=== PATIENT | female | born 1960 | race Two or more races ===

== ENCOUNTER 2025-05-06 20:01 | Emergency (ER) | payer MEDICAID, SELFPAY ==
[2025-05-06 20:04] VITALS: BMI 23.4
[2025-05-06 20:28] VITALS: BP 132/88; PULSE 94; RESP 18; TEMP 37.1; O2SAT 98
--- NOTE | 2025-05-06 20:31 | XR_ITS ---
Examination: CT brain head without contrast. 2-D sagittal coronal reconstructions Date and time of exam:May 06, 2025 2109 hours INDICATIONS: Ground-level fall today with injury to the head, head pain CTDI: vol (mGy):43 DLP: (mGycm):801 Technique: Multiple CT axial sections of the brain have been obtained, 5 mm slice thickness. Contrast has not been administered. 2-D sagittal, coronal reconstructions have been obtained Low dose protocols were performed. One or more of the following dose reduction techniques were used; automated exposure control, adjustment of the mA and/or KV according to patient size, use of iterative reconstruction technique. Findings: No significant ventricular enlargement. Intra-axial or extra-axial hemorrhage density is not seen. No mass effect or midline shift Basal cisterns are not remarkable. Fourth ventricle is midline. Cranial vault intact. Impression: Negative for acute hemorrhage, mass effect or midline shift
--- NOTE | 2025-05-06 20:31 | XR_ITS ---
Examination: CT maxillofacial, without intravenous contrast. 2-D sagittal reconstructions. 3-D reconstructions. Date and time of exam:May 06, 2000 8025 2106 hours INDICATIONS: Patient fell today with injury to the face facial pain CTDI: vol (mGy):16. DLP: (mGycm): 343. Technique: Multiple axial images of maxillofacial region, 3.0 mm slice thickness. 2-D sagittal and coronal reconstructions. 3-D reconstructions. Low dose protocols were performed. One or more of the following dose reduction techniques were used; automated exposure control, adjustment of the mA and/or KV according to patient size, use of iterative reconstruction technique. Findings: Frontal: Intact. Orbital rims intact. No nasal bone fracture. No depression zygomatic arches. Pterygoid plates maxilla and the mandible is intact IMPRESSION: No acute facial fracture.
--- NOTE | 2025-05-06 20:32 | EDNOTE_ITS ---
ED Fall Injury RME/HPI General Chief Complaint: Fall Stated Complaint: TRIP AND FALL MOUTH AND FOREHEAD LACERATIONS Time Seen by Provider: 05/06/25 20:26 Source: patient, RN notes reviewed and old records reviewed Arrival date/time: 05/06/25 20:01 Mode of arrival: ambulatory Limitations: no limitations RME / HPI RME / HPI Narrative: 64yof presents to ED for evaluation s/p head injury today. Patient reports mechanical trip and fall over a curb hitting her head and face against the concrete. No LOC reported. Patient denies nausea/vomiting, neck pain, vision c hanges or dizziness. Ibuprofen taken district captain. Tetanus vacc up-to-date. Related Data Home Medications ?Medication ?Instructions ?Recorded ?Confirmed levothyroxine 75 mcg tablet 75 mcg PO QDAY ##0 3 08/02/20 lisinopril 20 mg tablet 20 mg PO QDAY 07/22/1808/02 simvastatin 10 mg tablet 20 mg PO QHS 07/22/18 empagliflozin 25 mg tablet 25 mg PO QDAY 08/02/2007/23 (Jardiance) insulin glargine 100 unit/mL (3 25 unit subcut QPM 08/1108/02/20 mL) subcutaneous pen (Lantus Solostar U-100 Insulin) metformin 500 mg tablet 500 mg PO BID 08/02/2008/02 pantoprazole 40 mg tablet,delayed 40 mg PO BID 0 08/02/20 release sitagliptin phosphate 100 mg 100 mg PO QDAY 08/02/20 1 10/02/19 tablet (Januvia) Previous Rx's ?Medication ?Instructions ?Recorded acetaminophen 650 mg 650 mg PO Q8H PRN pain #30 t abs 05/06/25 tablet,extended release (Tylenol 8 Hour) ibuprofen 600 mg tablet 600 mg PO Q8H PRN pain #30 t abs 05/06/25 Allergies Allergy/AdvReac Type Severity Reaction Status Date / Time No Known Allergies Allergy Verified 05/06/25 20:13 Review of Systems Review of Systems Systems Reviewed: All systems reviewed, normal except as documented Constitutional Constitutional: Reports headache(s) Eyes Eyes: Denies blurry vision ENT Ears, Nose, Mouth, and Throat: Denies dizziness, Reports headache(s) and Denies neck pain Cardiovascular Cardiovascular: Denies syncope Gastrointestinal Gastrointestinal: Denies nausea and Denies vomiting Musculoskeletal Musculoskeletal: Denies arthralgias, Denies back pain and Denies neck pain Integumentary/Breasts Comments: Reports facial wounds Neurologic Neurologic: Denies dizziness, Reports headache(s) and Denies syncope Past Medical History Past Medical History ENDOCRINE: Positive Diabetes Mellitus Type 2 and Hypothyroidism OTHER HISTORY: Positive Cancer (thyroid) Surgical History OTHER SURGICAL HX: thyroidectomy Social History SMOKING STATUS: Never smoker SUBSTANCE USE: does not use ALCOHOL: Never ED Exam General Limitations: Present no limitations General appearance: Present alert and in no apparent distress Head Head exam: Present normocephalic and other (3cm superficial linear abrasion to right eyebrow) Eye Eye exam: Present PERRL, EOMI and other (Right infraorbital contusion, mild swelling/tenderness) ENT ENT exam: Present mucous membranes moist and other (Dentition intact. Superficial abrasion/laceration to upper lip mucosa) Neck Neck exam: Present normal inspection and full ROM; Absent tenderness Chest Chest inspection: Present normal inspection and symmetric chest wall rise Respiratory Respiratory exam: Present normal lung sounds bilaterally; Absent respiratory distress Cardiovascular Cardiovascular exam: Present regular rate and normal rhythm Extremities Exam Extremities exam: Present normal inspection and full ROM Back Exam Back exam: Absent paraspinal tenderness or vertebral tenderness Neurological Exam Neurological exam: Present alert and oriented X3 Psychiatric Psychiatric exam: Present normal affect and normal mood Skin Skin exam: Present other (Superficial skin avulsion with abrasion to philtrum. Small superficial abrasions to right hand, right knee) Course Quality Measures none Orders Category Date Time Status CT facial bones wo con Stat Exams 05/06/25 20:[address] head/brain wo con Stat Exams 05/06/25 20:31 Completed HYDROcodone*/APAP 7.5/325 [[place] 7.5/325] Med 05/06/25 20:32 Discontinued 1 tab PO X1 ONE Vital Signs Vital signs: Vital Signs Temperature 98.8 F 05/06/25 20:28 Pulse Rate 94 05/06/25 20:28 Respiratory Rate 18 05/06/25 20:28 Blood Pressure 132/88 H 05/06/25 20:28 Pulse Oximetry (%) 98 05/06/25 20:28 Oxygen Delivery Method Room Air 05/06/25 20:28 Fall MDM Narrative MDM Narrative:: 64yof presents to ED for evaluation s/p head injury today. Patient reports mechanical trip and fall over a curb hitting her head and face against the concrete. No LOC reported. Patient denies nausea/vomiting, neck pain, vision changes or dizziness. Ibuprofen taken district captain. Tetanus vacc up-to-date. Imaging negative. Facial and extremity wounds are superficial. Patient is neurologically intact. Encouraged rest, Motrin/Tylenol, ice application prn. Stable for discharge, RTED precautions given. Patient data External records reviewed:: [facility] previous records (08/02/2020 ED visit for heart palpitations) Clinical information provided by:: patient Social determinants that could affect healthcare access:: none Patient has the following chronic illnesses:: DM, hypothyroid How is presenting disease/condition affected by chronic disease/condition?: uneffected by Evaluation data The following diagnostics were reviewed and interpreted by me:: radiology exam(s) Lab and/or radiology exams considered but not ordered:: None Interpretation Summary: CT head: No ICH per my read Medications / Prescriptions Medications or Prescriptions considered but not ordered:: No antibiotics recommended at this time Medication administrations:: Medication Administration History Discontinued Medications Hydrocodone Bitart/Acetaminophen (Hydrocodone/Apap 7.5/325 Tablet) 1 tab PO X1 ONE Stop: 05/06/25 20:33 Last Admin: 05/06/25 20:40 Dose: 1 tab Documented By: OA Above medication administered in ED Consultations Consultation(s) initiated? (list below): No Diagnosis Fall Differential Diagnosis: other (Head injury, orbital fracture, contusion, hematoma, MSK pain, avulsion, laceration, abrasion) Most likely diagnosis given after review of the tests above:: Facial abrasion, orbital contusion Admission Indicated Admission indicated?: not indicated Admission Request Was there a request for admission?: No Disposition Plan Disposition Plan: Discharge Discharge Attestation Discharge Attestation: The patient and all family members were given an opportunity to ask questions and understood the discharge instructions. Discharge instructions specifically effects, indications for sooner follow up or return to the emergency department, and the expected course of current diagnosis. Patient condition: Stable Discharge Plan Plan Patient Disposition: HOME (Self Care) Patient condition on transfer: Stable Prescriptions/Referrals Prescriptions/Med Rec: New ibuprofen 600 mg tablet 600 mg PO Q8H PRN (Reason: pain) Qty: 30 0RF acetaminophen [Tylenol 8 Hour] 650 mg tablet extended release 650 mg PO Q8H PRN (Reason: pain) Qty: 30 0RF No Action lisinopril 20 mg tablet 20 mg PO QDAY simvastatin 10 mg tablet 20 mg PO QHS levothyroxine 75 mcg Tablet 75 mcg PO QDAY Qty: 0 metformin 500 mg Tablet 500 mg PO BID pantoprazole 40 mg Tablet,Delayed Release (Dr/Ec) 40 mg PO BID Januvia 100 mg Tablet 100 mg PO QDAY Lantus Solostar U-100 Insulin 100 unit/mL (3 mL) Insulin Pen 25 unit SUBCUT QPM Jardiance 25 mg Tablet 25 mg PO QDAY Referrals: Leroy Gao, FRANCISCAC [Primary Care Provider] - In 1 week Problem List Clinical Impression: Facial contusion, Fall, Abrasion of right eyebrow Patient/Caregiver Discharge Instructions Education Materials: ED Facial Contusion Print Language: Ghanaian Stand Alone Forms: Soled[facility] Award Info., Patient Portal Info Letter PA/WORKERS COMPENSATION CLAIMS SPECIALIST Supervising Physician PA/WORKERS COMPENSATION CLAIMS SPECIALIST Supervising Physician: Chencho
[2025-05-06] MEDS: HYDROcodone/APAP 7.5/325 TABLET 1 TAB PO (20:40)
== END 2025-05-06 23:59 | disposition home or self-care (01) ==
PROVIDERS: Emergency Provider Emergency Medicine; PCP Physician Assistant
DX: S00.83XA Contusion of other part of head, initial encounter (principal); S00.211A Abrasion of right eyelid and periocular area, initial encounter; E11.9 Type 2 diabetes mellitus without complications; E89.0 Postprocedural hypothyroidism; Z79.84 Long term (current) use of oral hypoglycemic drugs; Z79.890 Hormone replacement therapy; Z79.899 Other long term (current) drug therapy; Z79.4 Long term (current) use of insulin; W01.0XXA Fall on same level from slipping, tripping and stumbling without subsequent striking against object, initial encounter
CPT/HCPCS: 70450; 70486; 99283; A9270

== ENCOUNTER 2025-05-28 11:00 | Emergency (ER) | payer MEDICAID, SELFPAY ==
[2025-05-28 11:01] VITALS: BMI 21.4
[2025-05-28 11:34] VITALS: BP 107/71; PULSE 92; RESP 18; TEMP 36.7; O2SAT 97
--- NOTE | 2025-05-28 11:44 | PD.EDRME ---
Rapid Medical Screening Exam E Arrival date/time: 05/28/25 11:00 This is a 64-year-old female that comes in with complaints of urinary symptoms. Patient complains of back pain chills and nausea. patient states she has been sick for over 2 weeks. Patient was initially placed on Macrobid which did not seem to help patient's symptoms. Patient was then put on Cipro and she was called back to her doctor's office because the Cipro was a resistant antibiotic and so they had to switch it to Keflex. Patient states she started taking Keflex yesterday. Patient has a history of diabetes. I have greeted and performed a focused initial assessment of this patient. Initial appropriate labs ordered at this time. A comprehensive ED assessment and evaluation of the patient and analysis of all test and completion of medical decision making process will be conducted by additional ED provider. Chief Complaint: Urogenital-Female Time Seen by Provider: 05/28/25 11:31 Vital signs: Vital Signs Temperature 98.1 F 05/28/25 11:34 Pulse Rate 92 05/28/25 11:34 Respiratory Rate 18 05/28/25 11:34 Blood Pressure 107/71 05/28/25 11:34 Pulse Oximetry (%) 97 05/28/25 11:34 Oxygen Delivery Method Room Air 05/28/25 11:34
[2025-05-28 12:05] LABS: Collection Type, Urine Voided
[2025-05-28 12:11] LABS: Lactate (Lactic Acid) 1.3 mMol/L (0.4-2.0)
[2025-05-28 12:19] LABS: Basophils # (Auto) 0.1 Thou/mm3 (0.0-0.2); Basophils % (Auto) 1 % (0-2.5); Eosinophils # (Auto) 0.1 Thou/mm3 (0.0-0.5); Eosinophils % (Auto) 1 % (0-10); Hematocrit 33.1 % (36.0-46.0); Hemoglobin 10.7 g/dL (12.0-16.0); Immature Granulocytes Auto 0.02 Thou/mm3 (0.00-0.00); Lymphocytes # (Auto) 1.7 Thou/mm3 (1.0-4.8); Lymphocytes % (Auto) 18 % (10-50); Mean Corpuscular HGB Conc 32.3 g/dl (31.0-37.0); Mean Corpuscular Hemoglobin 27.4 pg (25.0-35.0); Mean Corpuscular Volume 85 fL (80-100); Monocytes # (Auto) 0.5 Thou/mm3 (0.0-0.8); Monocytes % (Auto) 5 % (0-12); Neutrophils # (Auto) 7.1 Thou/mm3 (1.8-7.7); Neutrophils % (Auto) 75 % (37-80); Nucleated Red Blood Cell # 0.00 Thou/mm3 (0.00-0.00); Nucleated Red Blood Cell % 0 /100 WBC (0); Platelet Count 357 Thou/mm3 (140-440); RDW Standard Deviation 44.1 fL (36.4-46.3); Red Blood Count 3.90 Miln/mm3 (4.00-5.20); White Blood Count 9.5 Thou/mm3 (3.6-11.0)
[2025-05-28 12:42] LABS: Bilirubin,Urine Negative (Negative); Blood,Urine Negative (Negative); Color,Urine Lt-Yellow (Lt Yel-Yel); Glucose, Urine 4+ (Negative); Ketones,Urine 1+ (Negative); Leukocyte Esterase,Urine Positive (Negative); Nitrite,Urine Negative (Negative); PH,Urine 5.5 (5.0-7.0); Protein,Urine Trace (Neg - Trace); RBC,Urine 5 /hpf (0-3); Specific Gravity,Urine 1.021 (1.001-1.035); Squamous Epithelial Cell,Urine < 1 /hpf (0-5); Urobilinogen,Urine Negative mg/dL (0.0-1.0); WBC,Urine 141 /hpf (0-5)
[2025-05-28 12:46] LABS: Clarity,Urine Hazy (Clear/Hazy); Culture Indicated,Urine Yes
[2025-05-28 13:09] LABS: Alanine Aminotransferase 14 U/L (10-49); Albumin, Serum 4.7 gm/dL (3.4-4.8); Albumin/Globulin Ratio 1.7 (1.2-2.2); Alkaline Phosphatase 96 U/L (46-116); Anion Gap 14 (7-16); Aspartate Amino Transferase 20 U/L (0-34); BUN/Creatinine Ratio 16 Ratio (12-20); Bilirubin,Total 0.4 mg/dL (0.3-1.2); Blood Urea Nitrogen 16 mg/dL (9-23); Calcium 10.4 mg/dL (8.3-10.6); Calcium (Corrected) 10.4 mg/dL (8.5-10.1); Carbon Dioxide 22.1 mMol/L (20.0-31.0); Chloride 102 mMol/L (98-107); Creatinine (Component) 1.0 mg/dL (0.6-1.3); Estimated Creatinine Clearance 41.4 mL/min (>60); Globulin 2.8 gm/dL (2.3-3.5); Glucose 117 mg/dL (74-106); Osmolality,Calculated 277 (275-295); Potassium 4.4 mMol/L (3.4-5.1); Sodium 138 mMol/L (136-145); Total Protein 7.5 gm/dL (5.7-8.2); eGFR > 60 See Note
[2025-05-28 13:12] LABS: Procalcitonin 0.08 ng/ml (0.0-0.49)
--- NOTE | 2025-05-28 13:26 | PD.EDFMALE ---
ED Female Urogenital RME/HPI General Chief complaint: Urogenital-Female Stated complaint: UTI FOR 3 WEEKS, NOW WITH BACK PAIN/N/V Time Seen by Provider: 05/28/25 11:31 Arrival date/time: 05/28/25 11:00 RME / HPI RME / HPI Narrative: 64-year-old female that comes in with complaints of urinary symptoms. Patient complains of back pain chills and nausea. patient states she has been sick for over 2 weeks. Patient was initially placed on Macrobid which did not seem to help patient's symptoms. Patient was then put on Cipro and she was called back to her doctor's office because the Cipro was a resistant antibiotic and so they had to switch it to Keflex. Patient states she started taking Keflex yesterday. Patient woke up this morning with nausea and 1 episode of vomiting. No fever noted. Patient has a history of diabetes. Related Data Home Medications ?Medication ?Instructions ?Recorded ?Confirmed levothyroxine 75 mcg tablet 75 mcg PO QDAY ##0 02/12/13 08/02/20 lisinopril 20 mg tablet 20 mg PO QDAY 07/22/18 08/02/20 simvastatin 10 mg tablet 20 mg PO QHS 07/22/18 08/02/20 empagliflozin 25 mg tablet 25 mg PO QDAY 08/02/20 08/02/20 (Jardiance) insulin glargine 100 unit/mL (3 25 unit subcut QPM 08/02/20 08/02/20 mL) subcutaneous pen (Lantus Solostar U-100 Insulin) metformin 500 mg tablet 500 mg PO BID 08/02/20 08/02/20 pantoprazole 40 mg tablet,delayed 40 mg PO BID 08/02/20 08/02/20 release sitagliptin phosphate 100 mg 100 mg PO QDAY 08/02/20 08/02/20 tablet (Januvia) Previous Rx's ?Medication ?Instructions ?Recorded acetaminophen 650 mg 650 mg PO Q8H PRN pain #30 tabs 05/06/25 tablet,extended release (Tylenol 8 Hour) ibuprofen 600 mg tablet 600 mg PO Q8H PRN pain #30 tabs 05/06/25 cefdinir 300 mg capsule 300 mg PO BID #14 caps 05/28/25 Allergies Allergy/AdvReac Type Severity Reaction Status Date / Time No Known Allergies Allergy Verified 05/28/25 11:02 Review of Systems Review of Systems Narrative Review of Systems: Review of system reviewed and within normal limits except mentioned in HPI ED Exam Narrative Physical exam: VITAL SIGNS: Reviewed. GENERAL APPEARANCE: Alert and interactive, follows commands, no acute distress, HEAD AND FACE: Non-traumatic. ENT: PERRL, pink conjunctivitis, eyelid no trauma, Mucous membrane moist. NECK: Supple, nontender, no nuchal rigidity. CHEST: No tenderness, no crepitus, no paradoxical movement, no retractions. LUNGS: Clear, well ventilated, symmetric, no rales, no wheezing, no ronchi, no stridor, good breath sounds bilaterally. HEART: Regular rate, regular rhythm, no murmur, no gallops. ABDOMEN: Soft, positive bowel sounds, nondistended, no guarding, nontender, no rebound, no masses, RECTAL: Deferred. GENITAL: Deferred. NEUROLOGICAL: Gross motor function intact sensory function intact, Appropriate for age. MUSCULOSKELETAL: low back tenderness, full range of motion. EXTREMITIES: Nontender, full range of motion. SKIN: Color pink, dry, no rash, no lacerations, no abrasions, no contusions. LYMPHATICS: Deferred. Course Quality Measures none Orders Category Date Time Status CT Screening NOW Care 05/28/25 13:[address] abdomen pelvis w con Stat Exams 05/28/25 13:27 Completed Blood Culture (Lab) Stat Lab 05/28/25 12:02 Received CBC Stat Lab 05/28/25 12:02 Completed Comprehensive Metabolic Panel Stat Lab 05/28/25 12:02 Completed Lactate (Lactic Acid) Stat Lab 05/28/25 12:02 Completed Procalcitonin Stat Lab 05/28/25 12:02 Completed Urinalysis, C/S if Indicated Stat Lab 05/28/25 11:40 Completed Urine Culture Stat Lab 05/28/25 11:40 Received Acetaminophen Tab [Tylenol ES Tab] Med 05/28/25 13:25 Discontinued 500 mg PO X1 ONE Dextrose 50% Syr [D50w Syringe Abboject] Med 05/28/25 16:34 Discontinued 50 ml IVP X1 ONE Ondansetron Inj [Zofran Inj] Med 05/28/25 13:24 Discontinued 4 mg IVP X1 ONE Ringers Lactated 1000 ml [Lactated Ringers] 1,000 ml Med 05/28/25 13:24 Discontinued IV 999 mls/hr cefTRIAXone/D5w 1gm IV premix [Rocephin/D5w 1gm IV Med 05/28/25 13:25 Discontinued premix] 1 gm in 50 ml IV X1 Vital Signs Vital signs: Vital Signs Temperature 98.1 F 05/28/25 11:34 Pulse Rate 92 05/28/25 11:34 Respiratory Rate 18 05/28/25 11:34 Blood Pressure 107/71 05/28/25 11:34 Pulse Oximetry (%) 97 05/28/25 11:34 Oxygen Delivery Method Room Air 05/28/25 11:34 Urogenital - Female MDM Narrative MDM Narrative:: 64-year-old female that comes in with complaints of urinary symptoms. Patient complains of back pain chills and nausea. patient states she has been sick for over 2 weeks. Patient was initially placed on Macrobid which did not seem to help patient's symptoms. Patient was then put on Cipro and she was called back to her doctor's office because the Cipro was a resistant antibiotic and so they had to switch it to Keflex. Patient states she started taking Keflex yesterday. Patient woke up this morning with nausea and 1 episode of vomiting. No fever noted. Patient has a history of diabetes. Laboratory workup CBC came back with hemoglobin of 10.7, hematocrit of 33.1 urinalysis significant for UTI CMP unremarkable except. While waiting in the ED, patient's blood sugar was noted to drop to 64. Patient was given sandwich and orange juice. Repeat blood sugar still 64, patient received D50 and sugar prior to discharge was noted to be [address] scan of the abdomen and pelvis showed Right urinary tract infection Significant cystitis pattern Patient received IV fluids, IV ceftriaxone. No recurrence of vomiting noted in the ED. Patient is tolerating food and drinks in the ED Stable for discharge home Patient data External records reviewed:: None Clinical information provided by:: patient Social determinants that could affect healthcare access:: none Patient has the following chronic illnesses:: Diabetes mellitus How is presenting disease/condition affected by chronic disease/condition?: exacerbated by Evaluation data The following diagnostics were reviewed and interpreted by me:: lab results and radiology exam(s) Lab and/or radiology exams considered but not ordered:: None Interpretation Summary: See results and MDM Medications / Prescriptions Medications or Prescriptions considered but not ordered:: IV fluids, IV ceftriaxone Medication administrations:: Medication Administration History Discontinued Medications Acetaminophen (Acetaminophen 500 Mg Tablet) 500 mg PO X1 ONE Stop: 05/28/25 13:26 Last Admin: 05/28/25 14:37 Dose: 500 mg Documented By: EF Dextrose (Dextrose 50%-Water Inj 50 Ml Syringe) 50 ml IVP X1 ONE Stop: 05/28/25 16:35 Last Admin: 05/28/25 16:47 Dose: 50 ml Documented By: EF Lactated Ringer's (Lactated Ringers) 1,000 mls @ 999 mls/hr IV .Q1H1M ONE Stop: 05/28/25 14:24 Last Infusion: 05/28/25 15:38 Dose: Infused Documented By: Admin: 05/28/25 14:37 Dose: 999 mls/hr Documented By: EF Ceftriaxone Sodium/Dextrose (Rocephin/D5w 1gm Iv Premix) 1 gm in 50 mls @ 100 mls/hr IV X1 ONE Stop: 05/28/25 13:54 Last Infusion: 05/28/25 15:08 Dose: Infused Documented By: Admin: 05/28/25 14:38 Dose: 100 mls/hr Documented By: EF Ondansetron HCl (Ondansetron Inj 2 Mg/Ml Inj 2 Ml) 4 mg IVP X1 ONE; Protocol Stop: 05/28/25 13:25 Last Admin: 05/28/25 14:37 Dose: 4 mg Documented By: EF See [facility] Consultations Consultation(s) initiated? (list below): No Diagnosis Urogenital Female Differential Diagnosis: urinary tract infection and other (Acute pyelonephritis UTI, hyperglycemia) Most likely diagnosis given after review of the tests above:: UTI Admission Indicated Admission indicated?: not indicated Explain why admission is indicated or not indicated:: Stable for discharge home Admission Request Was there a request for admission?: No Disposition Plan Disposition Plan: Discharge Discharge Attestation Discharge Attestation: The patient was given an opportunity to ask questions and understood the discharge instructions. Discharge instructions specifically effects, indications for sooner follow up or return to the emergency department, and the expected course of current diagnosis. Patient condition: Stable Discharge Plan Plan Patient Disposition: HOME (Self Care) Discharge Disposition comment: Stable Prescriptions/Referrals Prescriptions/Med Rec: New cefdinir 300 mg capsule 300 mg PO BID Qty: 14 0RF No Action lisinopril 20 mg tablet 20 mg PO QDAY simvastatin 10 mg tablet 20 mg PO QHS levothyroxine 75 mcg Tablet 75 mcg PO QDAY Qty: 0 metformin 500 mg Tablet 500 mg PO BID pantoprazole 40 mg Tablet,Delayed Release (Dr/Ec) 40 mg PO BID Januvia 100 mg Tablet 100 mg PO QDAY Lantus Solostar U-100 Insulin 100 unit/mL (3 mL) Insulin Pen 25 unit SUBCUT QPM Jardiance 25 mg Tablet 25 mg PO QDAY ibuprofen 600 mg tablet 600 mg PO Q8H PRN (Reason: pain) Qty: 30 0RF acetaminophen [Tylenol 8 Hour] 650 mg tablet extended release 650 mg PO Q8H PRN (Reason: pain) Qty: 30 0RF Referrals: David Gao PA-C [Primary Care Provider, Medical] - In 1 week Problem List Clinical Impression: Urinary tract infection Patient/Caregiver Discharge Instructions Discharge Activity: activity as tolerated Education Materials: Understanding Urinary Tract ... Additional Instructions: Thank you for the opportunity for serving you today. You are stable for discharged . You are advised to: Follow-up with your PCP in 1 to 2 days Return to ED for worsening of symptoms Increase oral fluids Take medication as prescribed Check your blood sugar frequently and eat 3 meals a day with snacks in between, do not take your Lantus tonight. Print Language: Greenlandic Stand Alone Forms: Soled[facility] Award Info., Patient Portal Info Letter KARIME/KANCHAN Supervising Physician KARIME/KANCHAN Supervising Physician: MD Caden
--- NOTE | 2025-05-28 13:27 | XR_ITS ---
Examination: CT abdomen with intravenous contrast CT pelvis with intravenous contrast 2-D coronal reconstructions 2-D sagittal reconstructions Date and time of exam:May 28, 2025 1540 hrs. Indications: Urinary tract infections flank pain beginning 3 weeks ago.. CTDI: vol (mGy) 5.7. DLP: (mGycm) 287. Technique: Multiple axial sections of the abdomen and pelvis have been obtained. 64 slice high-resolution scanner used. 3 mm axial sections have been obtained, post intravenous injection 60 cc [id number]. 2-D sagittal, coronal reconstructions obtained. Low dose protocols were performed. One or more of the following dose reduction techniques were used; automated exposure control, adjustment of the mA and/or KV according to patient size, use of iterative reconstruction technique. Findings: No focal liver or splenic lesions. Absent gallbladder. No extrahepatic biliary tract dilatation. No pancreatic mass. Mild renal parenchymal scar formation Mild wall enhancement involving the right ureter, no renal or ureteral calculi, no hydronephrosis Normal appendix Colonic diverticulosis Inflammatory change around the base of the bladder or cystitis pattern No pelvic mass Impression: Right urinary tract infection Significant cystitis pattern
[2025-05-28 14:19] VITALS: BP 115/72; PULSE 81; RESP 17; TEMP 36.8; O2SAT 98
[2025-05-28] MEDS: ONDANSETRON INJ 2 MG/ML INJ 2 ML 4 MG IVP (14:37)
[2025-05-28] MEDS: RINGERS LACTATED 1000 ML 1,000 ML 999 ML IV (14:37)
[2025-05-28] MEDS: ACETAMINOPHEN 500 MG TABLET PO (14:37)
[2025-05-28] MEDS: cefTRIAXone/D5w 1gm IV premix 1 GM/50 ML BAG IV (14:38)
[2025-05-28] MEDS: DEXTROSE 50%-WATER INJ 50 ML SYRINGE IVP (16:47)
[2025-05-28 17:25] VITALS: BP 104/61; PULSE 83; RESP 15; O2SAT 98
== END 2025-05-28 17:32 | disposition home or self-care (01) ==
PROVIDERS: Nurse Practitioner Family; Emergency Provider Emergency Medicine; PCP Physician Assistant
DX: N39.0 Urinary tract infection, site not specified (principal); E11.9 Type 2 diabetes mellitus without complications
CPT/HCPCS: 36415; 74177; 80053; 81001; 83605; 84145; 85025; 87040; 87086; 96361; 96365; 96375; 99284; A4649; J0696; J2405; J7120; Q9967; A9270

== ENCOUNTER → 2025-08-12 | Outpatient (CLI) | payer MEDICAID, SELFPAY ==
[2025-08-12 11:47] LABS: Alanine Aminotransferase 21 U/L (10-49); Albumin, Serum 4.8 gm/dL (3.4-4.8); Albumin/Globulin Ratio 2.3 (1.2-2.2); Alkaline Phosphatase 86 U/L (46-116); Anion Gap 10 (7-16); Aspartate Amino Transferase 24 U/L (0-34); BUN/Creatinine Ratio 21 Ratio (12-20); Bilirubin,Total 0.2 mg/dL (0.3-1.2); Blood Urea Nitrogen 19 mg/dL (9-23); Calcium 9.6 mg/dL (8.3-10.6); Calcium (Corrected) 9.6 mg/dL (8.5-10.1); Carbon Dioxide 24.9 mMol/L (20.0-31.0); Chloride 107 mMol/L (98-107); Creatinine (Component) 0.9 mg/dL (0.6-1.3); Globulin 2.1 gm/dL (2.3-3.5); Glucose 221 mg/dL (74-106); Osmolality,Calculated 292 (275-295); Potassium 4.4 mMol/L (3.4-5.1); Sodium 142 mMol/L (136-145); Total Protein 6.9 gm/dL (5.7-8.2); eGFR > 60 See Note
== END | disposition home or self-care (01) ==
LOC: SLAB 10-06 07:51
PROVIDERS: Anesthesiology; PCP Physician Assistant; Referring Provider Surgery; Visit Provider Surgery
DX: Z01.812 Encounter for preprocedural laboratory examination (principal); Z12.11 Encounter for screening for malignant neoplasm of colon
CPT/HCPCS: 36415; 80053